=== PATIENT | male | born 1980 | race Two or more races ===

== ENCOUNTER 2016-10-20 13:15 | Emergency (ER) | payer SELFPAY ==
[~2016-10-20] VITALS: Ht 185.4 cm; Wt 117.9 kg
[2016-10-20 13:29] VITALS: BP 139/95
[2016-10-20] MEDS ORDERED: KETOROLAC TROMETH 60MG/2ML VIAL IM ONE (13:45)
== END 2016-10-20 15:04 | disposition home or self-care (01) ==
LOC: ER 13:21
DX: S20.212A Contusion of left front wall of thorax, initial encounter (principal); V43.52XA Car driver injured in collision with other type car in traffic accident, initial encounter; Y93.89 Activity, other specified; Y92.89 Other specified places as the place of occurrence of the external cause; Y99.8 Other external cause status
CPT/HCPCS: 71250; 93005; 96372; 99284; J1885

== ENCOUNTER 2023-03-11 09:55 | Emergency (ER) | payer OTHER ==
[~2023-03-11] VITALS: Ht 188 cm; Wt 159.0 kg
[2023-03-11] MEDS ORDERED: HYDROcodone-ACET 5/325MG TAB PO ONE (11:30)
[2023-03-11] MEDS ORDERED: HYDR-4902 PO (11:34)
[2023-03-11 11:47] VITALS: BP 143/98; PULSE 66; RESP 18; TEMP 98.1; O2SAT 98
== END 2023-03-11 12:04 | disposition home or self-care (01) ==
LOC: ER 09:55
DX: S93.402A Sprain of unspecified ligament of left ankle, initial encounter (principal); S90.02XA Contusion of left ankle, initial encounter; X50.1XXA Overexertion from prolonged static or awkward postures, initial encounter; Y93.89 Activity, other specified; Y92.89 Other specified places as the place of occurrence of the external cause; Y99.8 Other external cause status
CPT/HCPCS: 29515; 73610